=== PATIENT | male | born 2000 | race Caucasian/White ===

== ENCOUNTER 2022-07-23 00:23 | Day surgery (SDC) | payer BC, SELFPAY ==
[2022-07-22 16:02] VITALS: BMI 23.4
[2022-07-23 09:10] VITALS: BP 111/64; PULSE 57; RESP 18; TEMP 36.4; O2SAT 100
[2022-07-23] MEDS: LACTATED RINGERS 1,000 ML 150 ML IV CONT (09:24)
--- NOTE | 2022-07-23 09:34 | P.PNAN_ITS ---
Anes - Initial Pre Proc Eval Procedure: Operation Date: 07/23/22 10:15 Proposed Procedures p Esophagogastroduodenoscopy EGD - Renzo Wray MD Date/Time: 07/23/22 09:34 Surgeon: Renzo Wray MD Pre Op Diagnosis: abd & epigastric pain & IBS Patient Data Age: 22 Gender: M Height: 1.7 m Weight: 56 kg Last Vital Signs Temp 97.5 F L 07/23/22 09:10 Pulse 57 L 07/23/22 09:10 Resp 18 07/23/22 09:10 BP 111/64 07/23/22 09:10 Pulse Ox 100 07/23/22 09:10 O2 Del Method Room Air 07/23/22 09:10 Allergies Allergy/AdvReac Type Severity Reaction Status Date / Time No Known Allergies Allergy Verified 07/23/22 09:05 Home Medications Medication Instructions Recorded Confirmed Type esomeprazole magnesium 20 mg 20 mg PO DAILY #30 caps 06/18/22 07/23/22 Rx capsule,delayed release (Nexium 24HR) Patient hx anesthesia problems: none Family hx anesthesia problems: none Results Review: All pre-operative results and documents have been reviewed as part of the pre- operative evaluation. [facility] Social History Social History (Updated 06/18/22 @ 16:00 by Rabia Naik MA) Smoking status: Never smoker Alcohol intake: current Substance use: never Substance use type: does not use Living arrangements: with family Gender identity (if verbalized by the patient): Male Spiritual care concerns: No Anes - Eval Final PreProcedure Day of Procedure 07/23/22 09:34 Patient weight: normal Heart: regular rate and rhythm Lungs: clear to auscultation Neurological: alert and oriented Last oral intake: >/= 8 hours ASA classification: II Emergent: no Anesthetic plan: proceed Anesthesia type and monitoring: general GIVS and standard monitoring Results Review: All pre-operative results and documents have been reviewed as part of the pre- operative evaluation. Informed Consent: The patient's anesthetic plan and its attendant risks and benefits were discussed with the patient/family/POA. Questions were solicited and answers provided to the satisfaction of the patient/family/POA.
--- NOTE | 2022-07-23 09:44 | PM.HPGS ---
History of Present Illness History of Present Illness Consent: Risks, benefits, and alternatives have been discussed and questions answered. Patient agrees to proceed with procedure. Chief complaint: abd & epigastric pain & IBS Narrative: Wilber Hall is a 22 year old male with loss of appetite last few months, never had egd Review of Systems Constitutional: Constitutional: Denies headache(s) and Denies weakness Eyes: Eyes: Denies blurry vision ENT: Reports Normal hearing present, Denies headache(s) and Denies neck pain Cardiovascular: Cardiovascular: Denies chest pain and Denies dyspnea Respiratory: Respiratory: Denies dyspnea Gastrointestinal: Gastrointestinal: Reports no additional gastrointestinal complaints Genitourinary: Genitourinary: Denies dysuria Musculoskeletal: Musculoskeletal: Denies neck pain Integumentary/Breasts: Skin/Breast: Denies dry skin Neurologic: Reports Normal hearing present, Denies headache(s) and Denies weakness Psychiatric: Psychiatric: Denies anxiety Endocrine: Endocrine: Denies change in body appearance Hematologic/Lymphatic: Hematologic/Lymphatic: Denies easy bleeding Allergic/Immunologic: Allergic/Immunologic: Denies urticaria PMFSH Past Medical History Medical History (Updated 07/23/22 @ 09:44 by Renzo Wray MD) Loss of appetite Social History Social History (Updated 06/18/22 @ 16:00 by Rabia Naik MA) Smoking status: Never smoker Alcohol intake: current Substance use: never Substance use type: does not use Living arrangements: with family Gender identity (if verbalized by the patient): Male Spiritual care concerns: No Meds Home Medications and Allergies Home Medications Medication Instructions Recorded Confirmed Type esomeprazole magnesium 20 mg 20 mg PO DAILY #30 caps 06/18/22 07/23/22 Rx capsule,delayed release (Nexium 24HR) Allergies Allergy/AdvReac Type Severity Reaction Status Date / Time No Known Allergies Allergy Verified 07/23/22 09:05 Vital Signs Vital Signs - 24 hr 07/23/22 09:10 Temperature 97.5 F L Pulse Rate 57 L Respiratory Rate 18 Blood Pressure 111/64 Pulse Oximetry 100 Oxygen Delivery Room Air Exam Const: General: comfortable and no acute distress HENMT: Face/Nose/Sinus: Normal nares present Eyes: General: appearance normal, both eyes and all related structures Neck: Neck: no JVD Resp: Auscultation: clear to auscultation bilaterally Cardio: Rate: regular rate Rhythm: regular rhythm GI: Inspection: non-distended GI Palp: Yes Soft to palpation Skin: General skin exam: normal color Neuro: General: gait normal Speech: normal speech Extrem: General: normal to inspection Psych: Mental Status: mental status grossly normal Assessment and Plan Assessment and plan (1) Loss of appetite: Code(s): R63.0 - Anorexia Status: Acute Assessment and Plan: egd with bx
[2022-07-23 10:05] VITALS: BP 106/54; PULSE 79; RESP 23; O2SAT 100
[2022-07-23 10:15] VITALS: BP 106/54; PULSE 79; RESP 23; O2SAT 100
[2022-07-23 10:25] VITALS: BP 123/83; PULSE 72; RESP 16; O2SAT 100
== END 2022-07-23 10:41 | disposition home or self-care (01) ==
PROVIDERS: PCP Pediatrics; Visit Provider Internal Medicine Gastroenterology
PROC: 0DJ08ZZ Inspection of Upper Intestinal Tract, Via Natural or Artificial Opening Endoscopic (ICD-10-PCS; CPT 43235; principal; 2022-07-23 10:15)
DX: R10.13 Epigastric pain (principal); R63.0 Anorexia; K58.9 Irritable bowel syndrome, unspecified; K31.84 Gastroparesis
CPT/HCPCS: 43239; 88305; J2704; J7120

== ENCOUNTER 2022-08-03 09:22 | Outpatient (CLI) | payer BC, SELFPAY ==
--- NOTE | ~2022-08-03 | NM_ITS ---
EXAM: NM gastric emptying study DATE: 08/03/2022 14:12 INDICATION: Early satiety TECHNIQUE: A gastric emptying study was performed using the methodology of Pratima RODRIGUEZ, et al. J Nucl Med 2007; 48:568-572. The patient was given a meal consisting of 2 scrambled eggs labeled with 0.90 mCi Tc-99m sulfur colloid, 2 slices of toast, two packages of jam, and approximately 120 mL of water. Simultaneous anterior and posterior 1-min images of the abdomen were obtained with the patient supin e at multiple time points over a total period of 4 hours. The geometric mean of anterior and posterio r views was determined, and the percentage retention was calculated for each time point. COMPARISON: None. FINDINGS: Gastric retention of the radiotracer-labeled meal was 40%, 17%, and 3% at the 1-hour, 2-hour, and 4-h our time points, respectively. With this technique, apparent rapid gastric emptying is suggested by < 30% gastric retention at 1 hour. Delayed gastric emptying is defined by gastric retention of >90% at 1 hour, >60% retention at 2 hours, or >10% retention at 4 hours. IMPRESSION: 1. Normal gastric emptying. Reviewed, dictated and finalized at location A. REAMER IMPRESSION: 1. Normal gastric emptying.
== END 2022-08-03 09:23 | disposition home or self-care (01) ==
LOC: ANHIMG 09:24
PROVIDERS: PCP Pediatrics; Visit Provider Internal Medicine Gastroenterology
DX: R68.81 Early satiety (principal); R63.0 Anorexia
CPT/HCPCS: 78264; A9541